=== PATIENT | male | born 1945 | race Caucasian/White ===

== ENCOUNTER → 2020-08-03 | Outpatient (CLI) | payer MEDICARE, OTHER ==
[~2020-08-03] MED LIST: ASPIRIN325 MG PO; ISOSORBIDE MONO30 MG PO; LIPITOR TAB 1010 MG PO; LISINOPRIL-HCT1 EAC1 PO; MONTELUKAST SOD10 MG PO; NASACORT16.9 ML; NIASPAN1000 MG PO; NITROSTAT0.4 MG SL; OMEPRAZOLE20 MG PO; ULTRAM50 MG PO; VERAPAMIL ER120 MG PO; VITAMIN B-1000 MCG/M IM
[2020-08-03 12:07] LABS: HEMOGLOBIN 17.2 gm/dl (14.0-17.5); RED BLOOD COUNT 5.29 M/UL (4.20-5.50)
[2020-08-03 12:31] LABS: BUN/CREATININE RATIO 17 (0-10)
== END ==
LOC: LAB 10:46
PROVIDERS: Internal Medicine
DX: I25.10 Atherosclerotic heart disease of native coronary artery without angina pectoris (principal); N40.1 Benign prostatic hyperplasia with lower urinary tract symptoms; E78.5 Hyperlipidemia, unspecified; E53.8 Deficiency of other specified B group vitamins; E55.9 Vitamin D deficiency, unspecified
CPT/HCPCS: 36415; 80048; 80061; 80076; 82607; 84153; 84443; 85025; G0103